=== PATIENT | male | born 1985 | race Caucasian/White ===

== ENCOUNTER 2018-10-07 23:43 | Inpatient (IN) | payer BC ==
[~2018-10-07] VITALS: Ht 177.8 cm; Wt 90.7 kg
[2018-10-08] VITALS (9 sets, daily range): BP systolic 100–156; BP diastolic 52–88
--- NOTE | 2018-10-08 | NUR ---
ED Nurse Note: patient walked into ED c/o of chest pain 5/10 located in the sternum that radiates to his jaw, patient states that it started around 2 days ago, patient states that it started as a fever and chills, patient also states that he does have a history of indigestion and strep. at time of arrival no fever
--- NOTE | 2018-10-08 00:11 | Emergency Room Report ---
History of Present Illness General Chief Complaint: Chest Pain Source: Patient Present Illness HPI Is a 32-year-old male with no past medical history. He presents with chief complaint of chest pain. About 4 days ago he woke up with fever and chills. There was ongoing for 2 days. Then he started having some vomiting and then perfuse diarrhea. He still having some diarrhea. Vomiting improved. He still feeling nauseous. Fever broke and occasionally with chills. He came in because he started having some chest pain in his throat and epigastric area. Burning sensation. He was concerned about heart attack because he looked it up online. No exertional component. No radiation. No diaphoresis or shortness of breath. Allergies: Coded Allergies: No Known Allergies (Unverified , 10/07/18) Patient History Past Medical History: none, see triage record, old chart reviewed Past Surgical History: none Pertinent Family History: none Social History: Denies: smoking Immunizations: other Reviewed Nursing Documentation: PMH: Agreed; PSxH: Agreed Nursing Documentation-PM Past Medical History: No History, Except For Review of Systems Constitutional: Reports: chills, sweats, fever Eye: Denies: eye pain, blurred vision ENT: Denies: ear pain, nose congestion, throat swelling Respiratory: Denies: cough, shortness of breath Cardiovascular: Reports: chest pain; Denies: palpitations Gastrointestinal: Reports: abdominal pain, diarrhea, nausea, vomiting Musculoskeletal: Denies: back pain, joint pain Skin: Denies: rash Neurological: Denies: headache, numbness Endocrine: Denies: increased thirst, increased urine Hematologic/Lymphatic: Denies: easy bruising All Other Systems: negative except mentioned in HPI Physical Exam Vital Signs Date Time Temp Pulse Resp B/P (MAP) Pulse Ox O2 Delivery O2 Flow Rate FiO2 10/07/18 23:51 98.4 82 18 145/85 99 Room Air vitals unremarkable Sp02 EP Interpretation: reviewed, normal General Appearance: well appearing, no apparent distress, alert Head: normocephalic, atraumatic Eyes: bilateral eye PERRL, bilateral eye EOMI ENT: hearing grossly normal, normal pharynx Neck: full range of motion, supple, no meningismus Respiratory: chest non-tender, lungs clear, normal breath sounds Cardiovascular #1: regular rate, rhythm, no murmur Gastrointestinal: normal bowel sounds, non tender, no mass, no organomegaly, no bruit, non-distended Musculoskeletal: back normal, gait/station normal, normal range of motion Psychiatric: mood/affect normal Skin: warm/dry Medical Decision Making Diagnostic Impression: Primary Impression: Myocarditis Qualified Codes: I40.9 - Acute myocarditis, unspecified Additional Impression: ACS (acute coronary syndrome) ER Course Patient presents with symptoms consistent with viral infection with fever and chills. Also with nausea vomiting and diarrhea. He then developed chest pain. His troponins are positive as his C-reactive protein. This is concerning for myocarditis versus pericarditis. I did not hear any friction rub. EKG showed nonspecific ST changes. No diffuse ST elevation. Chest x-ray is negative for any CHF or enlarged heart. There is no evidence of any restrictive process. No evidence of any tamponade. Patient is asymptomatic right now. He said he has no chest pain after aspirin and IV fluid. Because his troponin is elevated and rising, was admit for further workup. He will need cardiology consult and possible echocardiogram. Patient be admitted here under service of Dr. Ramirez. Lab Results Impression labs with elevated troponin and C-reactive protein. EKG Diagnostic Results Rate: normal Rhythm: NSR ST Segments: other - Nonspecific ASA given to the pt in ED: Yes Rhythm Strip Diag. Results Rhythm Strip Time: 02:28 EP Interpretation: yes Rate: 82 Rhythm: NSR, no PVC's, no ectopy Chest X-Ray Diagnostic Results Chest X-Ray Diagnostic Results : Chest X-Ray Ordered: Yes # of Views/Limited/Complete: 1 View Indication: Chest Pain EP Interpretation: Yes Interpretation: no consolidation, no effusion, no pneumothorax, no acute cardiopulmonary disease Impression: No acute disease Electronically Signed by: Wes Gustafson MD Last Vital Signs Date Time Temp Pulse Resp B/P (MAP) Pulse Ox O2 Delivery O2 Flow Rate FiO2 10/07/18 23:51 98.4 82 18 145/85 99 Room Air Status: improved Disposition: ADMITTED INPATIENT Condition: Serious Wes Gustafson MD Oct 08, 2018 00:11
[2018-10-08] MEDS ORDERED: Mylanta II UD 30ml ORAL ONE (00:15)
[2018-10-08 00:45] LABS: BASOPHILS % (AUTO) 0.8 % (0.0-2.0); EOSINOPHILS % (AUTO) 0.4 % (0.0-3.0); HEMATOCRIT 46.2 % (42.0-52.0); HEMOGLOBIN 15.7 G/DL (14.2-18.0); LYMPHOCYTES % (AUTO) 15.1 % (20.0-45.0); MEAN CORPUSCULAR VOLUME 87 FL (80-99); MONOCYTES % (AUTO) 16.1 % (1.0-10.0); NEUTROPHILS % (AUTO) 67.6 % (45.0-75.0); PLATELET COUNT 182 K/UL (150-450); RED BLOOD COUNT 5.32 M/UL (4.70-6.10); RED CELL DISTRIBUTION WIDTH 11.2 % (11.6-14.8)
[2018-10-08 00:55] LABS: ANION GAP 9 mmol/L (5-15); BLOOD UREA NITROGEN 12 mg/dL (7-18); CALCIUM 9.6 MG/DL (8.5-10.1); CARBON DIOXIDE 28 MMOL/L (21-32); CHLORIDE 100 MMOL/L (98-107); CREATININE 1.1 MG/DL (0.55-1.30); POTASSIUM 4.1 MMOL/L (3.5-5.1); SODIUM 137 MMOL/L (136-145)
[2018-10-08] MEDS ORDERED: Ketorolac 30mg Inj IV ONE (02:30)
--- NOTE | 2018-10-08 04:00 | NUR ---
ED Nurse Note: patient is currently staying in the ER due to not having beds upstairs, patient was given 2 sandwiches, reports of no pain at this time, states that the IV fluids "made me feel alot better"
--- NOTE | 2018-10-08 07:17 | NUR ---
HAND-OFF: Report given to CONCETTA Otto.
[2018-10-08] MEDS ORDERED: Sodium Chloride 500ML 500 ML IVLG SCH (07:21)
[2018-10-08] MEDS ORDERED: Morphine Sulfate 4mg/ml Inj (IV/IM USE ONLY) IVP PRN ×3 (07:30)
[2018-10-08] MEDS ORDERED: Nitroglycerin Subl 0.4mg tab SL PRN (07:45)
--- NOTE | 2018-10-08 08:01 | NUR ---
ED Nurse Note: Report given to Andrés Landis at ext [phone]. Pt transfered to Tele floor with night monitor, portable oxygen, and all belongings. No acute distress noted.
--- NOTE | 2018-10-08 08:20 | NUR ---
NURSE NOTES: received patient report from Shelley rn from er. patient came in via hospital bed. transformer inspector initiated. patient was oriented to the room. belongings checked and signed. skin is intact.patient is noted to be AOX4. steady. under the care of dr burgess.
[2018-10-08] MEDS ORDERED: Azithromycin 500 MG in D5W 275 ML IV ONE (09:00)
--- NOTE | 2018-10-08 09:26 | NUR ---
CASE MANAGEMENT: REVIEW 32/M BIBA FROM HOME CC: CHEST PAIN SI: MYOCARDITIS T 98.4 HR 82 RR 18 BP 145/85 SAT 99% ROOM AIR TROPONIN I 19.329 IS: NS IVF BOLUS X1 ASA PO X1 TORADOL IV X1 INTERQUAL CRITERIA MET: PATIENT ADMITTED TO TELEMETRY UNIT 10/08/2018 DCP: PATIENT IS FROM HOME
--- NOTE | 2018-10-08 09:46 | Consultation ---
History of Present Illness General Date patient seen: Oct 08, 2018 Chief Complaint: Chest Pain Present Illness HPI 32 y/oo M with no prior medical lc presents to ED on 10/07 with chest pain, f/ c that started 4 days ago. Also vomiting and diarrhea. Denies diaphoresis, SOB. Allergies: Coded Allergies: No Known Allergies (Unverified , 10/07/18) Medication History No Active Prescriptions or Reported Meds Patient History Healthcare decision maker Resuscitation status Advanced Directive on File Patient History Narrative Pmhx: as above Shx: Denies: smoking Fhx: non contributory Review of Systems All Other Systems: negative except mentioned in HPI Physical Exam Physical Exam Narrative or Sp02 EP Interpretation: reviewed, normal General Appearance: well appearing, no apparent distress, alert Head: normocephalic, atraumatic Eyes: bilateral eye PERRL, bilateral eye EOMI ENT: hearing grossly normal, erythematous pharynx Neck: full range of motion, supple, no meningismus Respiratory: chest non-tender, lungs clear, normal breath sounds Cardiovascular #1: regular rate, rhythm, no murmur Gastrointestinal: normal bowel sounds, non tender, no mass, no organomegaly, no bruit, non-distended Musculoskeletal: back normal, gait/station normal, normal range of motion Psychiatric: mood/affect normal Skin: warm/dry, no rash Last 24 Hour Vital Signs Date Time Temp Pulse Resp B/P (MAP) Pulse Ox O2 Delivery O2 Flow Rate FiO2 10/08/18 08:02 98.2 72 17 108/52 100 Room Air 61 10/08/18 08:01 98.2 61 17 108/52 100 Room Air 10/08/18 06:33 98.2 72 17 112/67 98 Room Air 10/08/18 04:02 73 17 103/65 98 Room Air 10/08/18 03:07 98.4 10/08/18 02:43 98.1 74 18 118/72 99 Room Air 10/08/18 01:57 69 18 122/78 99 Room Air 10/08/18 00:00 82 18 Room Air 10/08/18 00:00 98.4 69 18 135/82 99 Room Air 10/07/18 23:51 98.4 82 18 145/85 99 Room Air Intake and Output 10/07/18 10/08/18 19:00 07:00 Intake Total 100 ml Balance 100 ml Intake Oral 100 ml Laboratory Tests Test 10/08/18 00:15 10/08/18 01:15 White Blood Count 10.0 K/UL (4.8-10.8) Red Blood Count 5.32 M/UL (4.70-6.10) Hemoglobin 15.7 G/DL (14.2-18.0) Hematocrit 46.2 % (42.0-52.0) Mean Corpuscular Volume 87 FL (80-99) Mean Corpuscular Hemoglobin 29.5 PG (27.0-31.0) Mean Corpuscular Hemoglobin Concent 34.0 G/DL (32.0-36.0) Red Cell Distribution Width 11.2 % (11.6-14.8) L Platelet Count 182 K/UL (150-450) Mean Platelet Volume 8.4 FL (6.5-10.1) Neutrophils (%) (Auto) 67.6 % (45.0-75.0) Lymphocytes (%) (Auto) 15.1 % (20.0-45.0) L Monocytes (%) (Auto) 16.1 % (1.0-10.0) H Eosinophils (%) (Auto) 0.4 % (0.0-3.0) Basophils (%) (Auto) 0.8 % (0.0-2.0) Sodium Level 137 MMOL/L (136-145) Potassium Level 4.1 MMOL/L (3.5-5.1) Chloride Level 100 MMOL/L (98-107) Carbon Dioxide Level 28 MMOL/L (21-32) Anion Gap 9 mmol/L (5-15) Blood Urea Nitrogen 12 mg/dL (7-18) Creatinine 1.1 MG/DL (0.55-1.30) Estimat Glomerular Filtration Rate > 60 mL/min (>60) Glucose Level 110 MG/DL (74-106) H Calcium Level 9.6 MG/DL (8.5-10.1) Troponin I 12.064 ng/mL (0.000-0.056) 19.329 ng/mL (0.000-0.056) Erythrocyte Sedimentation Rate 40 MM/HR (0-15) H C-Reactive Protein, Quantitative 12.2 mg/dL (0.00-0.90) H Height (Feet): 5 Height (Inches): 10.00 Weight (Pounds): 200 Medications Current Medications Medications (Trade) Dose Ordered Sig/Woodrow Route PRN Reason Start Time Stop Time Status Last Admin Dose Admin Acetaminophen (Tylenol) 650 mg Q4H PRN ORAL Headache 10/08/18 07:30 11/07/18 07:29 Acetaminophen (Tylenol) 650 mg Q4H PRN ORAL T>100.5 10/08/18 07:30 11/07/18 07:29 Aspirin (Ecotrin) 81 mg DAILY ORAL 10/08/18 09:00 11/07/18 08:59 Azithromycin (Zithromax) 250 mg DAILY ORAL 10/09/18 09:00 10/16/18 08:59 Azithromycin 500 mg/Dextrose 275 ml @ 275 mls/hr ONCE ONCE IV 10/08/18 09:00 10/08/18 09:59 Dextrose (Dextrose 50%) 25 ml Q30M PRN IV Hypoglycemia 10/08/18 07:30 11/07/18 07:29 Dextrose (Dextrose 50%) 50 ml Q30M PRN IV Hypoglycemia 10/08/18 07:30 11/07/18 07:29 Dextrose/ Electrolytes 1,000 ml @ 75 mls/hr [id number] IV 10/08/18 10:01 11/07/18 10:00 Diphenhydramine HCl (Benadryl) 25 mg Q6H PRN ORAL Itching/Pruritis 10/08/18 07:30 11/07/18 07:29 Enoxaparin Sodium (Lovenox) 40 mg DAILY SUBQ 10/08/18 09:00 11/07/18 08:59 Famotidine (Pepcid) 40 mg DAILY ORAL 10/08/18 09:00 11/07/18 08:59 Magnesium Hydroxide (Mom) 30 ml HSPRN PRN ORAL Constipation 10/08/18 21:00 11/07/18 20:59 Morphine Sulfate (Morphine Sulfate) 1 mg Q4H PRN IVP Mild Pain (Pain Scale 1-3) 10/08/18 07:30 10/15/18 07:29 Morphine Sulfate (Morphine Sulfate) 2 mg Q4H PRN IVP Moderate Pain (Pain Scale 4-6) 10/08/18 07:30 10/15/18 07:29 Morphine Sulfate (Morphine Sulfate) 4 mg Q4H PRN IVP Severe Pain (Pain Scale 7-10) 10/08/18 07:30 10/15/18 07:29 Nitroglycerin (Ntg) 0.4 mg Q5MIN X 3 DOSES PRN SL Prn Chest Pain 10/08/18 07:45 11/07/18 07:44 Ondansetron HCl (Zofran) 4 mg Q6H PRN IVP Nausea & Vomiting 10/08/18 07:30 11/07/18 07:29 Sodium Chloride 500 ml @ 125 mls/hr Q4H IVLG 10/08/18 07:21 10/08/18 10:00 10/08/18 07:43 Zolpidem Tartrate (Ambien) 5 mg HSPRN PRN ORAL Insomnia 10/08/18 21:00 10/15/18 20:59 Assessment/Plan Assessment/Plan Abx: Azithromycin 10/08- Assessment: Viral syndrome- r/o Influenza- vs other viral (coxsackie, echovirus, HIV, adenovirus) Chest pain- likely pericarditis/myocarditis (elevated trops in the s) -CXR p Fever (RESEARCH & INSIGHTS EXECUTIVE) N/V/D (RESEARCH & INSIGHTS EXECUTIVE) No leukocytosis Plan: -Start empiric Tamilfu pending influenza test -may continue to treat even if neg Flu test as test with poor sensitivity -Continue Azithromcyin #1 for now pending CXR and legionella g urine -f/u CXR -HIV ab and VL, RPR, GC/Cl, adenovirus, hepatitis panel, Adenovirus ab, EBV panel -f/u cx -Monitor CBC/CMP, temperatures Thank you for this consultation. Will continue to follow along with you. Discussed with Monique Garcia M.D. Oct 08, 2018 09:46
[2018-10-08] MEDS ORDERED: D5 1/2NS w/KCl 20mEq 1,000 ML IV SCH (10:01)
[2018-10-08] MEDS: Aspirin EC 81mg tab ORAL SCH (10:06)
[2018-10-08] MEDS: Oseltamivir 75mg cap ORAL SCH ×2 (10:10→17:16)
[2018-10-08] MEDS: Enoxaparin 40mg Inj SUBQ SCH (10:10)
--- NOTE | 2018-10-08 10:11 | Diagnostic Imaging Report ---
Indication: Cough Technique: 2 views of the chest Comparison: 10/08/2018 Findings: Lungs and pleural spaces are clear. The heart size is normal. The bones are unremarkable. No significant interim change. Impression: Negative
--- NOTE | 2018-10-08 10:59 | Diagnostic Imaging Report ---
Indication: Chest pain Technique: One view of the chest Comparison: none Findings: Lungs and pleural spaces are clear. Heart size is normal Impression: No acute process
--- NOTE | 2018-10-08 11:43 | NUR ---
INSURANCE [employer]ULI @ [phone] , PER [employer] PT WAS ACTIVE UNTIL 04/10/19 DID NOT PROVIDE EFF DATE,
[2018-10-08] MEDS ORDERED: Tums 500mg ORAL PRN (12:27)
--- NOTE | 2018-10-08 12:33 | Cardiac Electrophysiology PN ---
Subjective Subjective [id number] Objective Last 24 Hour Vital Signs Date Time Temp Pulse Resp B/P (MAP) Pulse Ox O2 Delivery O2 Flow Rate FiO2 10/08/18 10:28 Room Air 10/08/18 08:02 98.2 72 17 108/52 100 Room Air 61 10/08/18 08:01 98.2 61 17 108/52 100 Room Air 10/08/18 06:33 98.2 72 17 112/67 98 Room Air 10/08/18 04:02 73 17 103/65 98 Room Air 10/08/18 03:07 98.4 10/08/18 02:43 98.1 74 18 118/72 99 Room Air 10/08/18 01:57 69 18 122/78 99 Room Air 10/08/18 00:00 82 18 Room Air 10/08/18 00:00 98.4 69 18 135/82 99 Room Air 10/07/18 23:51 98.4 82 18 145/85 99 Room Air Intake and Output 10/07/18 10/08/18 19:00 07:00 Intake Total 100 ml Balance 100 ml Intake Oral 100 ml Laboratory Tests Test 10/08/18 00:15 10/08/18 01:15 White Blood Count 10.0 K/UL (4.8-10.8) Red Blood Count 5.32 M/UL (4.70-6.10) Hemoglobin 15.7 G/DL (14.2-18.0) Hematocrit 46.2 % (42.0-52.0) Mean Corpuscular Volume 87 FL (80-99) Mean Corpuscular Hemoglobin 29.5 PG (27.0-31.0) Mean Corpuscular Hemoglobin Concent 34.0 G/DL (32.0-36.0) Red Cell Distribution Width 11.2 % (11.6-14.8) L Platelet Count 182 K/UL (150-450) Mean Platelet Volume 8.4 FL (6.5-10.1) Neutrophils (%) (Auto) 67.6 % (45.0-75.0) Lymphocytes (%) (Auto) 15.1 % (20.0-45.0) L Monocytes (%) (Auto) 16.1 % (1.0-10.0) H Eosinophils (%) (Auto) 0.4 % (0.0-3.0) Basophils (%) (Auto) 0.8 % (0.0-2.0) Sodium Level 137 MMOL/L (136-145) Potassium Level 4.1 MMOL/L (3.5-5.1) Chloride Level 100 MMOL/L (98-107) Carbon Dioxide Level 28 MMOL/L (21-32) Anion Gap 9 mmol/L (5-15) Blood Urea Nitrogen 12 mg/dL (7-18) Creatinine 1.1 MG/DL (0.55-1.30) Estimat Glomerular Filtration Rate > 60 mL/min (>60) Glucose Level 110 MG/DL (74-106) H Calcium Level 9.6 MG/DL (8.5-10.1) Troponin I 12.064 ng/mL (0.000-0.056) 19.329 ng/mL (0.000-0.056) Erythrocyte Sedimentation Rate 40 MM/HR (0-15) H C-Reactive Protein, Quantitative 12.2 mg/dL (0.00-0.90) H Mark Henderson MD Oct 08, 2018 12:33
--- NOTE | 2018-10-08 12:46 | History & Physical ---
History and Physical History & Physicial Prudencio Ramirez MD Oct 08, 2018 12:46
[2018-10-08] MEDS: D5 1/2NS 1,000 ML IV SCH (13:05)
[2018-10-08] MEDS: Morphine Sulfate 4mg/ml Inj (IV/IM USE ONLY) IVP PRN ×2 (13:26→17:45)
[2018-10-08 13:46] LABS: ALANINE AMINOTRANSFERASE 57 U/L (12-78); ALBUMIN 3.9 G/DL (3.4-5.0); ALKALINE PHOSPHATASE 73 U/L (46-116); ASPARTATE AMINO TRANSFERASE 102 U/L (15-37); BILIRUBIN,DIRECT 0.1 MG/DL (0.0-0.3); BILIRUBIN,TOTAL 0.5 MG/DL (0.2-1.0)
--- NOTE | 2018-10-08 17:30 | Consultation ---
DATE OF CONSULTATION: 10/08/2018 CARDIOLOGY CONSULTATION CONSULTING PHYSICIAN: Mark Henderson M.D. REFERRING PHYSICIAN: Prudencio Ramirez M.D. REASON FOR CONSULTATION: Elevated troponin, possible myocarditis. HISTORY OF PRESENT ILLNESS: The patient is a very pleasant 32-year-old gentleman with no past medical history, who presented to the emergency room with chest pain. The patient had flu-like symptoms 4 days earlier and also had vomiting and diarrhea. On admission, the patient's troponin was elevated and EKG did not show any acute ischemic changes. The followup EKG was essentially completely normal. At the time of my evaluation, the patient denies any chest pain, palpitation, or shortness of breath. The patient already was evaluated by Infectious Disease specialist. He also underwent echocardiogram that showed ejection fraction of 45% to 50% with normal chamber size. REVIEW OF SYSTEMS: Negative other than what was mentioned in history of present illness. PAST MEDICAL HISTORY: Negative. FAMILY HISTORY: Noncontributory. SOCIAL HISTORY: He lives at home. Does not smoke or drink alcohol. PHYSICAL EXAMINATION: VITAL SIGNS: Show blood pressure of 108/52, pulse 61, respirations 18, and he is afebrile. HEAD AND NECK: Showed no JVD or carotid bruits. LUNGS: Clear. CARDIOVASCULAR: Shows regular S1 and S2 with no gallop or murmur. ABDOMEN: Soft. EXTREMITIES: No pitting edema. LABORATORY AND DIAGNOSTIC DATA: His EKG showed normal sinus rhythm, normal electrocardiogram. LABORATORY DATA: Show sodium 137, potassium 4.1, BUN of 12, creatinine 1.1. Troponin is 12 initially and then 19.32. White count is 10, hemoglobin of 15, hematocrit 46, and platelet count of 182,000. Sedimentation rate is 40. ASSESSMENT AND PLAN: Acute myocarditis, based on elevated troponin and chest pain. EKG showed no acute ischemic changes. The patient has no risk factors for coronary artery disease. This happened after upper respiratory tract infection. The patient was already evaluated by Infectious Disease specialist and already was started on azithromycin. The echocardiogram showed also EF of 45% to 50% and may be related to the patient's myocarditis. In the meantime, I will hold off on starting the patient on any cardioactive medications. We will repeat the troponin as well as EKG. The patient was also started on Tamiflu. Thank you very much, Dr. Ramirez, for allowing me to participate in the care of this patient. Please do not hesitate to contact me for any questions regarding my evaluation. Mark Henderson M.D. DR: Maryam JOB#: [id number] CC:
--- NOTE | 2018-10-08 18:30 | History and Physical Report ---
DATE OF ADMISSION: 10/08/2018 CHIEF COMPLAINT: Chest pain. HISTORY OF PRESENT ILLNESS: This is a 32 years old and gentleman with past medical history significant for oxycodone dependency, sober for a few months. The patient was dependent over for 5 months. He presented to the hospital complaining about chest pain. Chest pain has been going on for 4 days, retrosternal area, wakes him up with fever, chills, has been going on for the past 2 days associated with diarrhea and nausea. The patient said that the diarrhea has improved and nausea has improved. However, he has been still nauseated and worsening with food intake. Fever is improved. Denies any loss of consciousness. He complained about sore throat as well as epigastric pain, burning sensation. He denies any history of coronary disease or heart attack or family history. Shortly after initial evaluation in the emergency room, the patient was admitted to the hospital. Chest pain is most likely secondary to myocarditis. PAST MEDICAL HISTORY/PAST SURGICAL HISTORY: None except oxycodone dependency, which is sober now, history of wisdom tooth removal as well as tonsillectomy. MEDICATIONS: Medications at home none, occasionally Zantac for GERD. FAMILY HISTORY: Maternal side has a history of coronary disease. SOCIAL HISTORY: The patient has a history of oxycodone abuse in the past. Socially drinks. No substance at this time. No IV drug abuse. He is an actor. REVIEW OF SYSTEMS: Mostly as above. Denies any dysuria, frequency, or hematuria. Denies any hemoptysis or hematochezia. Denies any bright red blood per rectum. Complained about acid reflux. He complained about chest pain. Complained about any nausea, vomiting, and diarrhea. Denies any bloody stool. Denies any loss of consciousness. Denies any fall or head trauma. PHYSICAL EXAMINATION: VITAL SIGNS: On admission, temperature 98.4, pulse of 82, respirations 18, and blood pressure 145/85. GENERAL: The patient is awake, responsive, in no acute distress. HEAD AND NECK: Pupils are equal and reactive to light. Anicteric. Neck was supple. No JVD. LUNGS: Good air entry. No wheezes or rales. HEART: S1 and S2. Regular rhythm. The patient has distant heart sounds. No rubs were appreciated. No gallop. ABDOMEN: Soft, nondistended, and nontender. Positive bowel sounds. EXTREMITIES: No cyanosis, clubbing, or edema. NEUROLOGIC: Cranial nerves II through XII grossly intact. Motor is 5/5 in all extremities. Gait is intact. RECTAL: Refused and deferred. GENITOURINARY: Refused and deferred. PSYCHIATRIC: Mood and affect is intact. LABORATORY DATA: At admission, WBC of 10, hemoglobin 15, hematocrit 46, platelets 182. The patient's troponin is 12. Second troponin is 19. Sodium 137, potassium 4.0, chloride 100, bicarbonate 28, BUN 12, creatinine 1.1. Glucose is 110. CRP of 12. ESR is 40. The patient's EKG, sinus rhythm, no ST elevation was identified. No T-wave inversion, ventricular rate of 85. ASSESSMENT: 1. Chest pain most likely secondary to myocarditis. 2. Viral syndrome, possibly due to the versus influenza. 3. Gastroenteritis. PLAN: Admit the patient to medical floor. We will continue IV hydration. The patient was started on azithromycin. The patient has been seen by Dr. Recinos from [place] and start the patient on Tamiflu pending on the influenza test. We will follow up with Dr. Henderson from Cardiology Electrophysiology. Continue on 2D echo. Serial cardiac enzymes. Code Status is Full Code. DVT prophylaxis. Heparin subcutaneous. Discussed with the patient extensively regarding the plan of care as well as his girlfriend. Prudencio Ramirez M.D. DR: ENOCH JOB#: [id number] CC:
--- NOTE | 2018-10-08 19:32 | NUR ---
HAND-OFF: Report given to jaun rn.
--- NOTE | 2018-10-08 19:33 | NUR ---
NURSE NOTES: Received report from Cici Wadsworth RN. Patient in bed asleep with HOB elevated at semi fowlers, AAO x4; able to verbalize needs and wants appropriately without difficulty. No complaints of acute pain at this time; kept clean, dry, and comfortable in bed. IV line intact and patent SL. Safety precaution in place; siderails up x3, call light within reach, bed in lowest position, brakes and alarm on at all times. Cardiac monitoring in place per protocol. labs monitored closely and noted for any changes. Needs and wants anticipated and attended, will continue to monitor for any changes Patient is placed on Droplet precaution per MD Grisel (ID). Elevated troponinMD aware and will monitor labs and await results
[2018-10-08] MEDS ORDERED: Zolpidem 5mg tab ORAL PRN (21:00)
[2018-10-08] MEDS ORDERED: Milk of Magnesia 30ml Ud ORAL PRN (21:00)
[2018-10-09] VITALS: BP 119/81
[2018-10-09] MEDS: D5 1/2NS 1,000 ML IV SCH ×2 (01:47→15:35)
[2018-10-09 04:00] VITALS: BP 121/79
--- NOTE | 2018-10-09 04:41 | NUR ---
NURSE NOTES: Patient in bed asleep with no S/S of distress at this time. Will continue to monitor
[2018-10-09] MEDS: Morphine Sulfate 4mg/ml Inj (IV/IM USE ONLY) IVP PRN ×3 (06:24→17:50)
--- NOTE | 2018-10-09 07:08 | Cardiology Report ---
APPROVED REPORT EXAM: Two-dimensional and M-mode echocardiogram with Doppler and color Doppler. INDICATION Acute myocardial infarction M-Mode DIMENSIONS IVSd0.7 (0.7-1.1cm)Left Atrium (MM)3.7 (1.6-4.0cm) LVDd5.2 (3.5-5.6cm)Aortic Root3.0 (2.0-3.7cm) PWd0.7 (0.7-1.1cm)Aortic Cusp Exc.2.0 (1.5-2.0cm) LVDs3.3 (2.5-4.0cm) PWs0.7 cm Normal left ventricular chamber size, systolic function and wall motion. Left ventricular ejection fraction estimated to be 55 %. No evidence of left ventricular hypertrophy. No evidence of pericardial effusion. All other cardiac chamber sizes are within normal limits. Normal appearing aortic, mitral, pulmonic and tricuspid valves. Mild mitral annulus and aortic root calcification. IVC is normal in size with physiological collapse. A color flow and spectral Doppler study was performed and revealed: No aortic insufficiency. No mitral regurgitation. Mitral inflow velocities indicates possible pseudo normalization pattern implying significant left ventricular diastolic dysfunction (Grade II). No tricuspid regurgitation. Tricuspid systolic velocities suggests peak right ventricular systolic pressure of 22 mmHg. No pulmonic regurgitation present.
--- NOTE | 2018-10-09 07:09 | NUR ---
HAND-OFF: Report given to EomPayal RN. Patient in stable condition, endorsed plan of care.
--- NOTE | 2018-10-09 07:25 | NUR ---
NURSE NOTES: Received report from CONCETTA Camp. Patient is in stable condition. No acute distress/SOB noted. Patient denies any pain/discomfort. Will continue plan of care.
[2018-10-09 07:56] LABS: ALANINE AMINOTRANSFERASE 56 U/L (12-78); ALBUMIN 3.3 G/DL (3.4-5.0); ALBUMIN/GLOBULIN RATIO 0.8 (1.0-2.7); ALKALINE PHOSPHATASE 60 U/L (46-116); ANION GAP 3 mmol/L (5-15); ASPARTATE AMINO TRANSFERASE 50 U/L (15-37); BILIRUBIN,TOTAL 0.3 MG/DL (0.2-1.0); BLOOD UREA NITROGEN 8 mg/dL (7-18); CALCIUM 9.4 MG/DL (8.5-10.1); CARBON DIOXIDE 27 MMOL/L (21-32); CHLORIDE 109 MMOL/L (98-107); CHOLESTEROL 147 MG/DL (< 200); HDL CHOLESTEROL 37 MG/DL (40-60); PHOSPHORUS 3.2 MG/DL (2.5-4.9); POTASSIUM 3.8 MMOL/L (3.5-5.1); SODIUM 139 MMOL/L (136-145); TRIGLYCERIDES 102 MG/DL (30-150)
[2018-10-09 08:00] VITALS: BP 116/67
[2018-10-09] MEDS: Aspirin EC 81mg tab ORAL SCH (08:11)
[2018-10-09] MEDS: Oseltamivir 75mg cap ORAL SCH (08:11)
[2018-10-09] MEDS: Enoxaparin 40mg Inj SUBQ SCH (08:16)
[2018-10-09] MEDS ORDERED: Azithromycin 250mg tab ORAL SCH (09:00)
[2018-10-09 12:00] VITALS: BP 114/63
--- NOTE | 2018-10-09 13:21 | Infectious Diseases Prog Note ---
Assessment/Plan Assessment/Plan Assessment: Viral syndrome- (coxsackie, echovirus, HIV, adenovirus) Flu negative Chest pain- likely pericarditis/myocarditis (elevated trops in the 19s) no evid of Pneum -CXR NAPd Fever ([facility]) N/V/D ([facility]) HIV ab :Neg No leukocytosis Plan: - DC Azithromcyin # 2 , ok to DC off of AB Rx from [facility] 10/09 Sp empiric Tamilfu d # 2 -f/u CXR -HIV VL, RPR, GC/Cl, adenovirus, hepatitis panel, Adenovirus ab, EBV panel -f/u cx -Monitor CBC/CMP, temperatures Subjective Allergies: Coded Allergies: No Known Allergies (Unverified , 10/07/18) Subjective no cough comfortable Objective Vital Signs Last 24 Hour Vital Signs Date Time Temp Pulse Resp B/P (MAP) Pulse Ox O2 Delivery O2 Flow Rate FiO2 10/09/18 09:00 Room Air 10/09/18 08:00 97.7 66 16 116/67 (83) 97 10/09/18 08:00 61 10/09/18 04:00 64 10/09/18 04:00 98.1 110 18 121/79 (93) 100 10/09/18 00:00 71 10/09/18 00:00 98.0 105 18 119/81 (94) 99 10/08/18 21:00 Room Air 10/08/18 20:00 70 10/08/18 20:00 98.1 107 19 156/88 (110) 98 10/08/18 16:00 90 10/08/18 15:50 98.2 10/08/18 13:56 98.2 Height (Feet): 5 Height (Inches): 10.00 Weight (Pounds): 200 HEENT: atraumatic Respiratory/Chest: normal breath sounds Cardiovascular: regular rhythm Abdomen: no organomegaly Microbiology Date/Time Source Procedure Growth Status 10/08/18 12:00 Nasopharynx Influenza Types A,B Antigen (DIANA) - Final Complete Laboratory Tests Test 10/09/18 06:37 Erythrocyte Sedimentation Rate 22 MM/HR (0-15) H Prothrombin Time 10.9 SEC (9.30-11.50) Prothromb Time International Ratio 1.0 (0.9-1.1) Activated Partial Thromboplast Time 26 SEC (23-33) Sodium Level 139 MMOL/L (136-145) Potassium Level 3.8 MMOL/L (3.5-5.1) Chloride Level 109 MMOL/L (98-107) H Carbon Dioxide Level 27 MMOL/L (21-32) Anion Gap 3 mmol/L (5-15) L Blood Urea Nitrogen 8 mg/dL (7-18) Creatinine 1.0 MG/DL (0.55-1.30) Estimat Glomerular Filtration Rate > 60 mL/min (>60) Glucose Level 95 MG/DL (74-106) Calcium Level 9.4 MG/DL (8.5-10.1) Phosphorus Level 3.2 MG/DL (2.5-4.9) Magnesium Level 2.3 MG/DL (1.8-2.4) Total Bilirubin 0.3 MG/DL (0.2-1.0) Aspartate Amino Transf (AST/SGOT) 50 U/L (15-37) H Alanine Aminotransferase (ALT/SGPT) 56 U/L (12-78) Alkaline Phosphatase 60 U/L (46-116) Troponin I 7.538 ng/mL (0.000-0.056) C-Reactive Protein, Quantitative 4.9 mg/dL (0.00-0.90) H Total Protein 7.2 G/DL (6.4-8.2) Albumin 3.3 G/DL (3.4-5.0) L Globulin 3.9 g/dL Albumin/Globulin Ratio 0.8 (1.0-2.7) L Triglycerides Level 102 MG/DL (30-150) Cholesterol Level 147 MG/DL (< 200) LDL Cholesterol 104 mg/dL (<100) H HDL Cholesterol 37 MG/DL (40-60) L Cholesterol/HDL Ratio 4.0 (3.3-4.4) Thyroid Stimulating Hormone (TSH) 0.694 uiU/mL (0.358-3.740) Free Thyroxine 0.96 NG/DL (0.76-1.46) Rapid Plasma Reagin Pending Adenovirus Antibody Pending Svetlana-Mckenzie Virus Capsid Ag IgG Ab Pending Svetlana-Mckenzie Virus Capsid Ag IgM Ab Pending EBV Early Ag Ab (Restrict +Diffuse) Pending Svetlana-Mckenzie Virus Nuclear Ag Ab Pending Hepatitis A IgM Antibody Pending Hepatitis B Surface Antigen Pending Hepatitis B Core IgM Antibody Pending Hepatitis C Antibody Pending HIV-1 RNA (PCR) log10 Value Pending HIV-1 RNA Ultraquantitative (PCR) Pending HIV (1&2) Antibody Rapid Negative (NEGATIVE) Current Medications Medications (Trade) Dose Ordered Sig/Woodrow Route PRN Reason Start Time Stop Time Status Last Admin Dose Admin Acetaminophen (Tylenol) 650 mg Q4H PRN ORAL Headache 10/08/18 07:30 11/07/18 07:29 10/09/18 01:46 Acetaminophen (Tylenol) 650 mg Q4H PRN ORAL T>100.5 10/08/18 07:30 11/07/18 07:29 Aspirin (Ecotrin) 81 mg DAILY ORAL 10/08/18 09:00 11/07/18 08:59 10/09/18 08:11 Azithromycin (Zithromax) 250 mg DAILY ORAL 10/09/18 09:00 10/16/18 08:59 10/09/18 08:11 Calcium Carbonate (Tums) 500 mg Q3H PRN ORAL hyperacidity 10/08/18 12:27 11/07/18 12:26 10/08/18 13:05 Dextrose (Dextrose 50%) 25 ml Q30M PRN IV Hypoglycemia 10/08/18 07:30 11/07/18 07:29 Dextrose (Dextrose 50%) 50 ml Q30M PRN IV Hypoglycemia 10/08/18 07:30 11/07/18 07:29 Dextrose/Sodium Chloride 1,000 ml @ 75 mls/hr [id number] IV 10/08/18 12:30 11/07/18 12:29 10/09/18 01:47 Diphenhydramine HCl (Benadryl) 25 mg Q6H PRN ORAL Itching/Pruritis 10/08/18 07:30 11/07/18 07:29 Enoxaparin Sodium (Lovenox) 40 mg DAILY SUBQ 10/08/18 09:00 11/07/18 08:59 10/09/18 08:16 Famotidine (Pepcid) 40 mg DAILY ORAL 10/08/18 09:00 11/07/18 08:59 10/09/18 08:11 Magnesium Hydroxide (Mom) 30 ml HSPRN PRN ORAL Constipation 10/08/18 21:00 11/07/18 20:59 Morphine Sulfate (Morphine Sulfate) 1 mg Q4H PRN IVP Mild Pain (Pain Scale 1-3) 10/08/18 07:30 10/15/18 07:29 10/08/18 22:52 Morphine Sulfate (Morphine Sulfate) 2 mg Q4H PRN IVP Moderate Pain (Pain Scale 4-6) 10/08/18 07:30 10/15/18 07:29 10/09/18 06:24 Morphine Sulfate (Morphine Sulfate) 4 mg Q4H PRN IVP Severe Pain (Pain Scale 7-10) 10/08/18 07:30 10/15/18 07:29 Nitroglycerin (Ntg) 0.4 mg Q5MIN X 3 DOSES PRN SL Prn Chest Pain 10/08/18 07:45 11/07/18 07:44 Ondansetron HCl (Zofran) 4 mg Q6H PRN IVP Nausea & Vomiting 10/08/18 07:30 11/07/18 07:29 Oseltamivir Phosphate (Tamiflu) 75 mg TWICE A DAY ORAL 10/08/18 09:45 10/12/18 18:01 10/09/18 08:11 Zolpidem Tartrate (Ambien) 5 mg HSPRN PRN ORAL Insomnia 10/08/18 21:00 10/15/18 20:59 Henry Goss MD Oct 09, 2018 13:21
--- NOTE | 2018-10-09 13:56 | NUR ---
NURSE NOTES: Seen by Dr. Goss. No more droplet precaution.
--- NOTE | 2018-10-09 14:27 | Cardiac Electrophysiology PN ---
Assessment/Plan Assessment/Plan 1. Acute myocarditis, based on elevated troponin 12>19>7 and chest pain. EKG showed no acute ischemic changes. This happened after upper respiratory tract infection. The patient was already evaluated by Infectious Disease specialist and already was started on azithromycin. The echocardiogram showed also EF of 45% to 50% and may be related to the patient's myocarditis. In the meantime, I will hold off on starting the patient on any cardioactive medications. The patient was also started on Tamiflu. 2. Recent Cocaine use. Check urine tox screen Subjective Subjective In SR with no CP or SOB. No arrhythmias Objective Last 24 Hour Vital Signs Date Time Temp Pulse Resp B/P (MAP) Pulse Ox O2 Delivery O2 Flow Rate FiO2 10/09/18 09:00 Room Air 10/09/18 08:00 97.7 66 16 116/67 (83) 97 10/09/18 08:00 61 10/09/18 04:00 64 10/09/18 04:00 98.1 110 18 121/79 (93) 100 10/09/18 00:00 71 10/09/18 00:00 98.0 105 18 119/81 (94) 99 10/08/18 21:00 Room Air 10/08/18 20:00 70 10/08/18 20:00 98.1 107 19 156/88 (110) 98 10/08/18 16:00 90 10/08/18 15:50 98.2 Intake and Output 10/08/18 10/09/18 19:00 07:00 Intake Total 745 ml 1875 ml Balance 745 ml 1875 ml Intake Oral 370 ml 1800 ml IV Total 375 ml 75 ml # Voids 5 4 # Bowel Movements 1 3 Laboratory Tests Test 10/09/18 06:37 Erythrocyte Sedimentation Rate 22 MM/HR (0-15) H Prothrombin Time 10.9 SEC (9.30-11.50) Prothromb Time International Ratio 1.0 (0.9-1.1) Activated Partial Thromboplast Time 26 SEC (23-33) Sodium Level 139 MMOL/L (136-145) Potassium Level 3.8 MMOL/L (3.5-5.1) Chloride Level 109 MMOL/L (98-107) H Carbon Dioxide Level 27 MMOL/L (21-32) Anion Gap 3 mmol/L (5-15) L Blood Urea Nitrogen 8 mg/dL (7-18) Creatinine 1.0 MG/DL (0.55-1.30) Estimat Glomerular Filtration Rate > 60 mL/min (>60) Glucose Level 95 MG/DL (74-106) Calcium Level 9.4 MG/DL (8.5-10.1) Phosphorus Level 3.2 MG/DL (2.5-4.9) Magnesium Level 2.3 MG/DL (1.8-2.4) Total Bilirubin 0.3 MG/DL (0.2-1.0) Aspartate Amino Transf (AST/SGOT) 50 U/L (15-37) H Alanine Aminotransferase (ALT/SGPT) 56 U/L (12-78) Alkaline Phosphatase 60 U/L (46-116) Troponin I 7.538 ng/mL (0.000-0.056) C-Reactive Protein, Quantitative 4.9 mg/dL (0.00-0.90) H Total Protein 7.2 G/DL (6.4-8.2) Albumin 3.3 G/DL (3.4-5.0) L Globulin 3.9 g/dL Albumin/Globulin Ratio 0.8 (1.0-2.7) L Triglycerides Level 102 MG/DL (30-150) Cholesterol Level 147 MG/DL (< 200) LDL Cholesterol 104 mg/dL (<100) H HDL Cholesterol 37 MG/DL (40-60) L Cholesterol/HDL Ratio 4.0 (3.3-4.4) Thyroid Stimulating Hormone (TSH) 0.694 uiU/mL (0.358-3.740) Free Thyroxine 0.96 NG/DL (0.76-1.46) Rapid Plasma Reagin Pending Adenovirus Antibody Pending Svetlana-Mckenzie Virus Capsid Ag IgG Ab Pending Svetlana-Mckenzie Virus Capsid Ag IgM Ab Pending EBV Early Ag Ab (Restrict +Diffuse) Pending Svetlana-Mckenzie Virus Nuclear Ag Ab Pending Hepatitis A IgM Antibody Pending Hepatitis B Surface Antigen Pending Hepatitis B Core IgM Antibody Pending Hepatitis C Antibody Pending HIV-1 RNA (PCR) log10 Value Pending HIV-1 RNA Ultraquantitative (PCR) Pending HIV (1&2) Antibody Rapid Negative (NEGATIVE) Microbiology Date/Time Source Procedure Growth Status 10/08/18 12:00 Nasopharynx Influenza Types A,B Antigen (DIANA) - Final Complete Objective HEAD AND NECK: No JVD or carotid bruits. LUNGS: Clear. CARDIOVASCULAR: Regular S1 and S2 with no gallop or murmur. ABDOMEN: Soft. EXTREMITIES: No pitting edema. Mark Henderson MD Oct 09, 2018 14:27
--- NOTE | 2018-10-09 14:42 | Internal Med Progress Note ---
Subjective Date of Service: Oct 09, 2018 Physician Name Gregorio Horta Attending Physician Prudencio Ramirez MD Current Medications Medications (Trade) Dose Ordered Sig/Woodrow Route PRN Reason Start Time Stop Time Status Last Admin Dose Admin Acetaminophen (Tylenol) 650 mg Q4H PRN ORAL Headache 10/08/18 07:30 11/07/18 07:29 10/09/18 01:46 Acetaminophen (Tylenol) 650 mg Q4H PRN ORAL T>100.5 10/08/18 07:30 11/07/18 07:29 Aspirin (Ecotrin) 81 mg DAILY ORAL 10/08/18 09:00 11/07/18 08:59 10/09/18 08:11 Calcium Carbonate (Tums) 500 mg Q3H PRN ORAL hyperacidity 10/08/18 12:27 11/07/18 12:26 10/08/18 13:05 Dextrose (Dextrose 50%) 25 ml Q30M PRN IV Hypoglycemia 10/08/18 07:30 11/07/18 07:29 Dextrose (Dextrose 50%) 50 ml Q30M PRN IV Hypoglycemia 10/08/18 07:30 11/07/18 07:29 Dextrose/Sodium Chloride 1,000 ml @ 75 mls/hr [id number] IV 10/08/18 12:30 11/07/18 12:29 10/09/18 01:47 Diphenhydramine HCl (Benadryl) 25 mg Q6H PRN ORAL Itching/Pruritis 10/08/18 07:30 11/07/18 07:29 Enoxaparin Sodium (Lovenox) 40 mg DAILY SUBQ 10/08/18 09:00 11/07/18 08:59 10/09/18 08:16 Famotidine (Pepcid) 40 mg DAILY ORAL 10/08/18 09:00 11/07/18 08:59 10/09/18 08:11 Magnesium Hydroxide (Mom) 30 ml HSPRN PRN ORAL Constipation 10/08/18 21:00 11/07/18 20:59 Morphine Sulfate (Morphine Sulfate) 1 mg Q4H PRN IVP Mild Pain (Pain Scale 1-3) 10/08/18 07:30 10/15/18 07:29 10/08/18 22:52 Morphine Sulfate (Morphine Sulfate) 2 mg Q4H PRN IVP Moderate Pain (Pain Scale 4-6) 10/08/18 07:30 10/15/18 07:29 10/09/18 13:38 Morphine Sulfate (Morphine Sulfate) 4 mg Q4H PRN IVP Severe Pain (Pain Scale 7-10) 10/08/18 07:30 10/15/18 07:29 Nitroglycerin (Ntg) 0.4 mg Q5MIN X 3 DOSES PRN SL Prn Chest Pain 10/08/18 07:45 11/07/18 07:44 Ondansetron HCl (Zofran) 4 mg Q6H PRN IVP Nausea & Vomiting 10/08/18 07:30 11/07/18 07:29 Zolpidem Tartrate (Ambien) 5 mg HSPRN PRN ORAL Insomnia 10/08/18 21:00 10/15/18 20:59 Allergies: Coded Allergies: No Known Allergies (Unverified , 10/07/18) ROS Limited/Unobtainable: No Constitutional: Reports: no symptoms HEENT: Reports: no symptoms Cardiovascular: Reports: no symptoms Respiratory: Reports: no symptoms Gastrointestinal/Abdominal: Reports: no symptoms Genitourinary: Reports: no symptoms Neurologic/Psychiatric: Reports: no symptoms Subjective 32 YO M admitted with chest pain. Now possible myocarditis. Cover for Int [facility]- Dr Ramirez. Objective Last Vital Signs Date Time Temp Pulse Resp B/P (MAP) Pulse Ox O2 Delivery O2 Flow Rate FiO2 10/09/18 09:00 Room Air 10/09/18 08:00 97.7 66 16 116/67 (83 97 General Appearance: WD/WN, no apparent distress, alert EENT: PERRL/EOMI, normal ENT inspection Neck: non-tender, normal alignment, supple, normal inspection Cardiovascular: normal peripheral pulses, normal rate, regular rhythm, no gallop/murmur, no JVD Respiratory/Chest: chest wall non-tender, lungs clear, normal breath sounds, no respiratory distress, no accessory muscle use Abdomen: normal bowel sounds, non tender, soft, no organomegaly, no mass Extremities: normal range of motion, non-tender Neurologic: cardiac nurse II-XII grossly normal, no motor/sensory deficits Skin: normal pigmentation, warm/dry Laboratory Tests Test 10/09/18 06:37 Erythrocyte Sedimentation Rate 22 MM/HR (0-15) H Prothrombin Time 10.9 SEC (9.30-11.50) Prothromb Time International Ratio 1.0 (0.9-1.1) Activated Partial Thromboplast Time 26 SEC (23-33) Sodium Level 139 MMOL/L (136-145) Potassium Level 3.8 MMOL/L (3.5-5.1) Chloride Level 109 MMOL/L (98-107) H Carbon Dioxide Level 27 MMOL/L (21-32) Anion Gap 3 mmol/L (5-15) L Blood Urea Nitrogen 8 mg/dL (7-18) Creatinine 1.0 MG/DL (0.55-1.30) Estimat Glomerular Filtration Rate > 60 mL/min (>60) Glucose Level 95 MG/DL (74-106) Calcium Level 9.4 MG/DL (8.5-10.1) Phosphorus Level 3.2 MG/DL (2.5-4.9) Magnesium Level 2.3 MG/DL (1.8-2.4) Total Bilirubin 0.3 MG/DL (0.2-1.0) Aspartate Amino Transf (AST/SGOT) 50 U/L (15-37) H Alanine Aminotransferase (ALT/SGPT) 56 U/L (12-78) Alkaline Phosphatase 60 U/L (46-116) Troponin I 7.538 ng/mL (0.000-0.056) C-Reactive Protein, Quantitative 4.9 mg/dL (0.00-0.90) H Total Protein 7.2 G/DL (6.4-8.2) Albumin 3.3 G/DL (3.4-5.0) L Globulin 3.9 g/dL Albumin/Globulin Ratio 0.8 (1.0-2.7) L Triglycerides Level 102 MG/DL (30-150) Cholesterol Level 147 MG/DL (< 200) LDL Cholesterol 104 mg/dL (<100) H HDL Cholesterol 37 MG/DL (40-60) L Cholesterol/HDL Ratio 4.0 (3.3-4.4) Thyroid Stimulating Hormone (TSH) 0.694 uiU/mL (0.358-3.740) Free Thyroxine 0.96 NG/DL (0.76-1.46) Rapid Plasma Reagin Pending Adenovirus Antibody Pending Svetlana-Mckenzie Virus Capsid Ag IgG Ab Pending Svetlana-Mckenzie Virus Capsid Ag IgM Ab Pending EBV Early Ag Ab (Restrict +Diffuse) Pending Svetlana-Mckenzie Virus Nuclear Ag Ab Pending Hepatitis A IgM Antibody Pending Hepatitis B Surface Antigen Pending Hepatitis B Core IgM Antibody Pending Hepatitis C Antibody Pending HIV-1 RNA (PCR) log10 Value Pending HIV-1 RNA Ultraquantitative (PCR) Pending HIV (1&2) Antibody Rapid Negative (NEGATIVE) Microbiology Date/Time Source Procedure Growth Status 10/08/18 12:00 Nasopharynx Influenza Types A,B Antigen (DIANA) - Final Complete Intake and Output 10/08/18 10/09/18 19:00 07:00 Intake Total 745 ml 1875 ml Balance 745 ml 1875 ml Intake Oral 370 ml 1800 ml IV Total 375 ml 75 ml # Voids 5 4 # Bowel Movements 1 3 Assessment/Plan Problem List: (1) Chest pain Assessment & Plan: Resolving. Possible myocarditis. See cardiology note (2) Viral syndrome Assessment & Plan: see ID note. (3) Gastroenteritis (4) Myocarditis Assessment & Plan: D/C azithromycin; await serologies. See ID note. (5) Elevated troponin I level Assessment & Plan: See cardiology note. Status: progressing Gregorio Horta MD Oct 09, 2018 14:42
[2018-10-09 16:00] VITALS: BP 94/62
--- NOTE | 2018-10-09 19:21 | NUR ---
HAND-OFF: Report given to CONCETTA Camp. Patient is in stable condition. Endorsed plan of care.
--- NOTE | 2018-10-09 19:22 | NUR ---
NURSE NOTES: Received report from Payal Griffin RN. Patient in bed AAO x4, able to verbalize needs and wants appropriately without difficulty. No complaints of acute pain at this time, kept clean, dry, and comfortable in bed. IV line intact and patent and SL. Safety precaution in place; siderails x3 up, call light within reach, bed in lowest position, brakes and alarm on at all times. Cardiac monitoring in place per protocol. Needs and wants anticipated and attended, will continue plan of care and monitor for any changes in condition noted.
[2018-10-09 20:00] VITALS: BP 127/69
[2018-10-10] VITALS: BP 121/71
[2018-10-10 04:00] VITALS: BP 133/71
[2018-10-10] MEDS: D5 1/2NS 1,000 ML IV SCH (04:53)
--- NOTE | 2018-10-10 07:05 | NUR ---
HAND-OFF: Report given to EomPayal RN. Patient in bed in stable condition, endorsed plan of care.
--- NOTE | 2018-10-10 07:08 | NUR ---
NURSE NOTES: Received report from CONCETTA Camp. Patient is in stable condition. No acute distress/SOB noted. Will continue plan of care.
[2018-10-10 07:47] LABS: BASOPHILS % (AUTO) 0.9 % (0.0-2.0); EOSINOPHILS % (AUTO) 0.5 % (0.0-3.0); HEMATOCRIT 42.3 % (42.0-52.0); HEMOGLOBIN 14.1 G/DL (14.2-18.0); MEAN CORPUSCULAR VOLUME 86 FL (80-99); MONOCYTES % (AUTO) 10.8 % (1.0-10.0); NEUTROPHILS % (AUTO) 62.8 % (45.0-75.0); PLATELET COUNT 221 K/UL (150-450); RED BLOOD COUNT 4.91 M/UL (4.70-6.10); RED CELL DISTRIBUTION WIDTH 11.3 % (11.6-14.8); WHITE BLOOD COUNT 10.2 K/UL (4.8-10.8)
--- NOTE | 2018-10-10 07:56 | NUR ---
NURSE NOTES: Called Dr. Henderson and requested troponin lab. Lab order carried out.
[2018-10-10 08:00] VITALS: BP 130/67
[2018-10-10] MEDS: Enoxaparin 40mg Inj SUBQ SCH (08:30)
[2018-10-10] MEDS: Aspirin EC 81mg tab ORAL SCH (08:30)
[2018-10-10 08:32] LABS: ANION GAP 7 mmol/L (5-15); BLOOD UREA NITROGEN 16 mg/dL (7-18); CALCIUM 9.6 MG/DL (8.5-10.1); CARBON DIOXIDE 26 MMOL/L (21-32); CHLORIDE 109 MMOL/L (98-107); POTASSIUM 3.8 MMOL/L (3.5-5.1); SODIUM 142 MMOL/L (136-145)
[2018-10-10 12:00] VITALS: BP 118/60
[2018-10-10] MEDS: Morphine Sulfate 4mg/ml Inj (IV/IM USE ONLY) IVP PRN (12:56)
--- NOTE | 2018-10-10 15:24 | Internal Med Progress Note ---
Subjective Date of Service: Oct 10, 2018 Physician Name Gregorio Horta Attending Physician Prudencio Ramirez MD Current Medications Medications (Trade) Dose Ordered Sig/Woodrow Route PRN Reason Start Time Stop Time Status Last Admin Dose Admin Acetaminophen (Tylenol) 650 mg Q4H PRN ORAL Headache 10/08/18 07:30 11/07/18 07:29 10/09/18 01:46 Acetaminophen (Tylenol) 650 mg Q4H PRN ORAL T>100.5 10/08/18 07:30 11/07/18 07:29 Aspirin (Ecotrin) 81 mg DAILY ORAL 10/08/18 09:00 11/07/18 08:59 10/10/18 08:30 Calcium Carbonate (Tums) 500 mg Q3H PRN ORAL hyperacidity 10/08/18 12:27 11/07/18 12:26 10/08/18 13:05 Dextrose (Dextrose 50%) 25 ml Q30M PRN IV Hypoglycemia 10/08/18 07:30 11/07/18 07:29 Dextrose (Dextrose 50%) 50 ml Q30M PRN IV Hypoglycemia 10/08/18 07:30 11/07/18 07:29 Dextrose/Sodium Chloride 1,000 ml @ 75 mls/hr [id number] IV 10/08/18 12:30 11/07/18 12:29 10/10/18 04:53 Diphenhydramine HCl (Benadryl) 25 mg Q6H PRN ORAL Itching/Pruritis 10/08/18 07:30 11/07/18 07:29 Enoxaparin Sodium (Lovenox) 40 mg DAILY SUBQ 10/08/18 09:00 11/07/18 08:59 10/10/18 08:30 Famotidine (Pepcid) 40 mg DAILY ORAL 10/08/18 09:00 11/07/18 08:59 10/10/18 08:30 Magnesium Hydroxide (Mom) 30 ml HSPRN PRN ORAL Constipation 10/08/18 21:00 11/07/18 20:59 Morphine Sulfate (Morphine Sulfate) 1 mg Q4H PRN IVP Mild Pain (Pain Scale 1-3) 10/08/18 07:30 10/15/18 07:29 10/08/18 22:52 Morphine Sulfate (Morphine Sulfate) 2 mg Q4H PRN IVP Moderate Pain (Pain Scale 4-6) 10/08/18 07:30 10/15/18 07:29 10/10/18 12:56 Morphine Sulfate (Morphine Sulfate) 4 mg Q4H PRN IVP Severe Pain (Pain Scale 7-10) 10/08/18 07:30 10/15/18 07:29 Nitroglycerin (Ntg) 0.4 mg Q5MIN X 3 DOSES PRN SL Prn Chest Pain 10/08/18 07:45 11/07/18 07:44 Ondansetron HCl (Zofran) 4 mg Q6H PRN IVP Nausea & Vomiting 10/08/18 07:30 11/07/18 07:29 Zolpidem Tartrate (Ambien) 5 mg HSPRN PRN ORAL Insomnia 10/08/18 21:00 10/15/18 20:59 Allergies: Coded Allergies: No Known Allergies (Unverified , 10/07/18) ROS Limited/Unobtainable: No Constitutional: Reports: no symptoms HEENT: Reports: no symptoms Cardiovascular: Reports: no symptoms Respiratory: Reports: no symptoms Gastrointestinal/Abdominal: Reports: no symptoms Genitourinary: Reports: no symptoms Neurologic/Psychiatric: Reports: no symptoms Subjective 32 YO M admitted with chest pain. Now possible myocarditis. Cover for Int Med- Dr Ramirez. Patient wants to discharge home today Objective Last Vital Signs Date Time Temp Pulse Resp B/P (MAP) Pulse Ox O2 Delivery O2 Flow Rate FiO2 10/10/18 12:00 56 10/10/18 12:00 97.5 18 118/60 (79) 96 10/10/18 09:00 Room Air Laboratory Tests Test 10/10/18 07:20 White Blood Count 10.2 K/UL (4.8-10.8) Red Blood Count 4.91 M/UL (4.70-6.10) Hemoglobin 14.1 G/DL (14.2-18.0) L Hematocrit 42.3 % (42.0-52.0) Mean Corpuscular Volume 86 FL (80-99) Mean Corpuscular Hemoglobin 28.8 PG (27.0-31.0) Mean Corpuscular Hemoglobin Concent 33.4 G/DL (32.0-36.0) Red Cell Distribution Width 11.3 % (11.6-14.8) L Platelet Count 221 K/UL (150-450) Mean Platelet Volume 7.6 FL (6.5-10.1) Neutrophils (%) (Auto) 62.8 % (45.0-75.0) Lymphocytes (%) (Auto) 25.0 % (20.0-45.0) Monocytes (%) (Auto) 10.8 % (1.0-10.0) H Eosinophils (%) (Auto) 0.5 % (0.0-3.0) Basophils (%) (Auto) 0.9 % (0.0-2.0) Sodium Level 142 MMOL/L (136-145) Potassium Level 3.8 MMOL/L (3.5-5.1) Chloride Level 109 MMOL/L (98-107) H Carbon Dioxide Level 26 MMOL/L (21-32) Anion Gap 7 mmol/L (5-15) Blood Urea Nitrogen 16 mg/dL (7-18) Creatinine 1.0 MG/DL (0.55-1.30) Estimat Glomerular Filtration Rate > 60 mL/min (>60) Glucose Level 94 MG/DL (74-106) Calcium Level 9.6 MG/DL (8.5-10.1) Troponin I 3.147 ng/mL (0.000-0.056) Microbiology Date/Time Source Procedure Growth Status 10/08/18 12:00 Nasopharynx Influenza Types A,B Antigen (DIANA) - Final Complete 10/08/18 13:35 Stool Stool Culture - Preliminary NO SALMONELLA,SHIGELLA,OR CAMPYLOBACT... Resulted Intake and Output 10/09/18 10/10/18 19:00 07:00 Intake Total 2280 ml 800 ml Balance 2280 ml 800 ml Intake Oral 680 ml 800 ml Other 1600 ml # Voids 7 3 # Bowel Movements 2 2 Objective General Appearance: WD/WN, no apparent distress, alert EENT: PERRL/EOMI, normal ENT inspection Neck: non-tender, normal alignment, supple, normal inspection Cardiovascular: normal peripheral pulses, normal rate, regular rhythm, no gallop/murmur, no JVD Respiratory/Chest: chest wall non-tender, lungs clear, normal breath sounds, no respiratory distress, no accessory muscle use Abdomen: normal bowel sounds, non tender, soft, no organomegaly, no mass Extremities: normal range of motion, non-tender Neurologic: guest services associate II-XII grossly normal, no motor/sensory deficits Skin: normal pigmentation, warm/dry Assessment/Plan Problem List: (1) Chest pain Assessment & Plan: Resolving. Possible myocarditis. See cardiology note (2) Viral syndrome Assessment & Plan: see ID note. (3) Gastroenteritis (4) Myocarditis Assessment & Plan: D/C azithromycin; await serologies. See ID note. (5) Elevated troponin I level Assessment & Plan: See cardiology note. Status: stable Assessment/Plan Discharge home today. Follow up with PCP this week Gregorio Horta MD Oct 10, 2018 15:24
--- NOTE | 2018-10-10 15:31 | NUR ---
NURSE NOTES: Seen by Dr. Horta.
--- NOTE | 2018-10-10 15:52 | NUR ---
NURSE NOTES: Discharge instruction given and patient verbalized understanding. No acute distress/SOB noted. Denies any pain/discomfort. Inventory check done. Removed potline monitor and IV line. IV site clean, intact and no bleeding noted. Patient is discharged with stable condition with friends.
--- NOTE | 2018-10-13 10:43 | Discharge Summary ---
Discharge Summary Discharge Summary _ DATE OF ADMISSION: [] 10/08/2018 DATE OF DISCHARGE: 10/10/2018 DISCHARGED BY: Dr. Ramirez REASON FOR ADMISSION: 32 years old male with past medical history of oxycodone dependency , currently sober, presented with complaint of chest pain. About 4 days ago he woke up with fever and chills , which were ongoing for 2 days. Patient started vomiting and had diarrhea ; vomiting resolved. He still felt nauseous , fever broke , occasionally having chills. Patient reported chest pain and epigastric pain with burning sensation. Upon evaluation vital signs were stable. Chest x-ray revealed no acute cardiopulmonary pathology. Laboratory workup revealed no leukocytosis. Elevated ESR 40. Stable coagulation profile. Troponin elevated 12.06. EKG revealed sinus rhythm, T wave inversion, no ectopy ,no PVC, no diffuse ST elevation. Aspirin was given in emergency department. Patient admitted with diagnoses of chest pain, most likely secondary to myocarditis, viral syndrome, gastroenteritis. CONSULTANTS: manager military Dr. Blake ID specialist Dr. Goss [facility] COURSE: Patient admitted to telemetry floor. Serial troponin were closely monitored. Troponin trending down, last troponin 3.14. Echocardiogram revealed preserved ejection fraction of 65%. No evidence of left ventricular hypertrophy. No evidence of pericardial effusion. No evidence of wall motion abnormality. Right ventricular systolic pressure of 22. Construction Coordinator closely followed. Per manager military patient had acute myocarditis based on elevated troponin and chest pain. EKG showed no acute ischemic changes. Patient had no risk factors for coronary artery disease. Chest pain started after upper respiratory infection. Patient started on antibiotic as per ID specialist recommendations. Patient also started on Tamiflu. Construction Coordinator recommended to hold off on starting any cardioactive medication. ID specialist closely followed. Influenza screen test was negative. Sputum culture was negative. Chest X-ray was repeated. No evidence of pneumonia. HIV test negative. No leukocytosis. No fevers. RPR nonreactive. Hepatitis panel negative. Adenovirus antibody pending. Infectious disease specialist recommended to stop antibiotic and cleared patient for discharge home off antibiotics. Patient stabilized: chest pain resolved, troponin trending down, diarrhea resolved, able to tolerate diet. Patient was stable for discharge home . Outpatient follow up with [facility], [place] provider in one week. FINAL DIAGNOSES: Acute myocarditis Viral syndrome Gastroenteritis Elevated troponin due to acute myocarditis Chest pain secondary to acute myocarditis DISCHARGE MEDICATIONS: See Medication Reconciliation list. DISCHARGE INSTRUCTIONS: Patient was discharged home Follow up with primary care provider in one week. I have been assigned to dictate discharge summary for this account. I was not involved in the patient's management. Ankita Cat NP Oct 13, 2018 10:43
== END 2018-10-10 15:52 | disposition home or self-care (01) | DRG 316 ==
LOC: EMR 23:59 → 2E 10-08 03:18 → EDBEDREQ 10-08 03:19 → 2E 10-08 08:28
DX: I40.9 Acute myocarditis, unspecified (principal); K21.9 Gastro-esophageal reflux disease without esophagitis; A08.4 Viral intestinal infection, unspecified
CPT/HCPCS: 36415; 71045; 71046; 80048; 80053; 80061; 80076; 83735; 84100; 84439; 84443; 84484; 85025; 85610; 85651; 85730; 86140; 86592; 86603; 86663; 86664; 86665; 86703; 86705; 86709; 86710; 86803; 87045; 87340; 87536; 93005; 93306; 96360; 99285